=== PATIENT | male | born 1995 | race American Indian/Alaskan Native ===

== ENCOUNTER 2021-07-05 19:26 | Emergency (ER) | payer MEDICAID, OTHER, SELFPAY ==
[2021-07-05] VITALS (8 sets, daily range): BP systolic 122–142; BP diastolic 57–63; PULSE 105–130; RESP 17–27; TEMP 36.6; O2SAT 98–99; BMI 48.7
--- NOTE | 2021-07-05 19:46 | ED_ITS ---
HPI - Back Pain/Injury General Chief Complaint: Back Pain/Injury Stated Complaint: Backpain Time Seen by Provider: 07/05/21 19:38 Source: patient and EMS History of Present Illness HPI Narrative: The patient presents with left flank pain starting about 1 week ago. He is morbidly obese. He can recall no injury. He has no dietary intolerance. He does nausea, vomiting or diarrhea. BMs are normal. He has no left mid back pain. Pain does not radiate to his scrotum. He denies dysuria or hematuria. He has had prior pain, not a severe or long-lasting. He has no history of the abdomen or pelvis surgeries. He is on no medications. He drinks of alcohol, s mokes tobacco. He does not use tobacco or other drugs. Related Data Allergies Allergy/AdvReac Type Severity Reaction Status Date / Time Sulfa (Sulfonamide Allergy Unknown Verified 07/05/21 19:42 Antibiotics) Review of Systems Constitutional Constitutional: Denies anorexia, Denies body ache(s), Denies chills, Denies fever(s) and Denies headache(s) ENT Ears, Nose, Mouth, and Throat: Denies vertigo, Denies dizziness, Denies headache(s), Denies sinus pain and Denies sore throat Cardiovascular Cardiovascular: Denies chest pain, Reports rapid heart rate and Denies dyspnea Respiratory Respiratory: Denies dyspnea Gastrointestinal Gastrointestinal: Reports as per HPI Genitourinary Genitourinary: Denies dysuria, Denies genital pain and Denies urinary frequency Musculoskeletal Musculoskeletal: Denies arthralgias, Reports back pain and Denies arthralgias Integumentary/Breasts Skin/Breast: Denies lesions and Denies rash Neurologic Neurologic: Denies confusion, Denies vertigo, Denies dizziness and Denies headache(s) Psychiatric Psychiatric: Denies confusion Hematologic/Lymphatic On Anticoagulants: No Patient History Medical History (Updated 07/05/21 @ 22:15 by Wally Parekh MD) No significant past medical history Surgical History (Updated 07/05/21 @ 19:57 by Wally Parekh MD) No significant past surgical history Social History Smoking Status: Never smoker Smoking Status: Never smoker alcohol intake frequency: a few times a month Substance Use Type: marijuana Exam Initial Vital Signs Initial Vital Signs: Vital Signs Temperature 97.9 F 07/05/21 19:28 Pulse Rate 130 H 07/05/21 19:28 Respiratory Rate 24 07/05/21 19:28 Blood Pressure 142/63 H 07/05/21 19:28 Pulse Oximetry 99 07/05/21 19:28 Const General: cooperative, comfortable and No diaphoretic Nutritional Appearance: obese HENCT Head: normal to inspection, normocephalic and atraumatic Face and sinus: normal facial exam and sinuses nontender Mouth: oral mucosae normal Throat: posterior oropharynx normal Eyes General: Yes appearance normal, both eyes and all related structures Neck Neck: normal visual inspection Thyroid: thyroid normal Chest Chest: normal inspection of the chest Resp Effort & Inspection: normal respiratory effort Auscultation: clear to auscultation bilaterally Cardio Rate: regular rate Rhythm: regular rhythm Heart Sounds: S1 normal, S2 normal, no murmurs and no rubs GI Other: Morbidly obese. Tenderness in the left mid abdomen, left upper quadrant, radiating to the left lower quadrant. No right-sided pain. No palpable masses. Normal bowel sounds. Back/Spine/Pelvis Back: No CVA tenderness Skin General: no rashes or lesions noted Neuro General: patient alert, patient awake, patient oriented x3 and no focal motor deficits Extrem General: normal to inspection, no pedal edema and no calf tenderness Psych Mental Status: mental status grossly normal Course Orders Ordered: ED Orders 07/05/21 19:30 Ictotest Urine Stat 07/05/21 19:50 Complete Blood Count AUTO DIFF Stat Comprehensive Metabolic Panel Stat Lipase Stat TSH [Thyroid Stimulating Hormone] Stat 07/05/21 19:53 CT abdomen pelvis w con Stat Sodium Chloride (Normal Saline 0.9%) 1,000 mls @ 250 mls/hr IV CONT MARCIO Last Admin: 07/05/21 20:02 Dose: 250 mls/hr Documented by: MIKE Discontinued Medications Ketorolac Tromethamine (Ketorolac 30 Mg/Ml Vial) 30 mg IV NOW ONE Stop: 07/05/21 19:53 Last Admin: 07/05/21 20:00 Dose: 30 mg Documented by: MIKE Vital Signs Vital signs: Vital Signs - 8 hr 07/05/21 19:28 07/05/21 20:17 07/05/21 20:30 Temperature 97.9 F Pulse Rate 130 H 119 H 112 H Respiratory Rate 24 24 27 H Blood Pressure 142/63 H Pulse Oximetry 99 99 98 07/05/21 20:46 07/05/21 21:00 07/05/21 21:30 Temperature Pulse Rate 115 H 112 H 112 H Respiratory Rate 17 27 H 17 Blood Pressure 126/58 L Pulse Oximetry 99 98 99 07/05/21 21:31 Temperature Pulse Rate 110 H Respiratory Rate 26 H Blood Pressure 123/57 L Pulse Oximetry 98 MDM - Back Pain/Injury Lab Data Result diagrams: 07/05/21 19:50 07/05/21 19:50 Labs: Lab Results 07/05/21 07/05/21 07/05/21 Range/Units 19:30 19:50 19:50 WBC 9.1 (4.5-11.0) X10^3/uL RBC 4.36 L (4.5-5.9) X10^6/uL Hgb 12.8 L (13.5-17.5) g/dL Hct 38.5 L (41-53) % MCV 88.3 (80-100) fL MCH 29.4 (26-34) PG MCHC 33.3 (30-36) % RDW 15.1 H (11.6-14.8) % Plt Count 449 H (150-400) X10^3/uL Neut % (Auto) 84.2 H (50-75) % Lymph % (Auto) 9.5 L (25-40) % [place] % (Auto) 4.3 (3-14) % Eos % (Auto) 1.2 L (2-4) % Baso % (Auto) 0.8 (0-2) % Neut # (Auto) 7600 H (1681-0921) /uL Lymph # (Auto) 900 L (4117-4864) /uL [place] # (Auto) 400 (0-900) /uL Eos # (Auto) 100 (0-450) /uL Baso # (Auto) 100 (0-100) /uL Sodium 142 (137-145) mmol/L Potassium 4.0 (3.4-5.1) mmol/L Chloride 105 (98-107) mmol/L Carbon Dioxide 24 (22-32) mmol/L BUN 13 (9-20) mg/dL Creatinine 1.14 (0.66-1.25) mg/dL Estimated GFR > 60 (>60) mL/min BUN/Creatinine Ratio 11.4 (6-22) Glucose 110 H (70-100) mg/dL Calcium 9.0 (8.4-10.2) mg/dL Total Bilirubin 0.5 (0.2-1.3) mg/dL AST 197 H (17-59) IU/L ALT 102 H (<50) IU/L Alkaline Phosphatase 115 (38-126) U/L Total Protein 8.4 H (6.3-8.2) g/dL Albumin 4.7 (3.5-5.0) g/dL Globulin 3.7 (1.7-4.1) g/dL Albumin/Globulin Ratio 1.3 (1.0-2.8) Lipase 61 (23-300) U/L TSH (0.47-4.68) uIU/mL Ur Bilirubin Confirm Negative (Negative) 07/05/21 Range/Units 19:50 WBC (4.5-11.0) X10^3/uL RBC (4.5-5.9) X10^6/uL Hgb (13.5-17.5) g/dL Hct (41-53) % MCV (80-100) fL MCH (26-34) PG MCHC (30-36) % RDW (11.6-14.8) % Plt Count (150-400) X10^3/uL Neut % (Auto) (50-75) % Lymph % (Auto) (25-40) % [place] % (Auto) (3-14) % Eos % (Auto) (2-4) % Baso % (Auto) (0-2) % Neut # (Auto) (3002-7546) /uL Lymph # (Auto) (3268-4293) /uL [place] # (Auto) (0-900) /uL Eos # (Auto) (0-450) /uL Baso # (Auto) (0-100) /uL Sodium (137-145) mmol/L Potassium (3.4-5.1) mmol/L Chloride (98-107) mmol/L Carbon Dioxide (22-32) mmol/L BUN (9-20) mg/dL Creatinine (0.66-1.25) mg/dL Estimated GFR (>60) mL/min BUN/Creatinine Ratio (6-22) Glucose (70-100) mg/dL Calcium (8.4-10.2) mg/dL Total Bilirubin (0.2-1.3) mg/dL AST (17-59) IU/L ALT (<50) IU/L Alkaline Phosphatase (38-126) U/L Total Protein (6.3-8.2) g/dL Albumin (3.5-5.0) g/dL Globulin (1.7-4.1) g/dL Albumin/Globulin Ratio (1.0-2.8) Lipase (23-300) U/L TSH 2.01 (0.47-4.68) uIU/mL Ur Bilirubin Confirm (Negative) Urine Dip Bedside Urine Glucose Negative Bedside Urine Bilirubin + 1 Bedside Urine Ketone - Negative Urine Specific [place] 1.030 Bedside Urine Occult Blood - Negative Bedside Urine pH 5.5 Bedside Urine Protein + 30 Bedside Urine Urobilinogen - Negative Bedside Urine Nitrite - Negative Bedside Urine Leukocytes - Negative Esterase Imaging Data CT scan - abdomen/pelvis: Radiologist's Impression: 1. No acute intra-abdominal abnormality.? Specifically, no evidence of diverticulitis or appendicitis. ? 2. Hepatic steatosis. [facility] Narrative Medical decision making narrative: His tachycardia sent out with rest. Labs show no suggestive infection. Renal function is normal. He has hepatic steatosis. His pain is the left side. He did get relief with Toradol. At/pelvis CT shows no acute findings. Exam then was suggest a muscle strain. He is discharged home with tomorrow off. He is advised use Advil for pain. He should follow-up with a local physician if not improved within 2 weeks. Discharge Plan Departure Patient Disposition: Home Clinical Impression: Abdominal wall strain Instructions: DI for Muscle Strain Activity Restrictions/Additional Instructions: Advil 3 tablets every 6 hours as needed for pain. Rest at home for the next day. Walk and stretch as tolerated. Recheck with your doctor in 7-10 days if not improved. Return here as necessary. Stand Alone Forms: Work Release Note
--- NOTE | 2021-07-05 19:53 | DI.CT.S_ITS ---
PROCEDURE: CT ABDOMEN PELVIS W CON INDICATIONS: Left abd pain TECHNIQUE: After the administration of oral and IV contrast, axial sections were acquired from the lung bases to the pubic symphysis. Coronal and sagittal reformats were performed. For radiation dose reduction, the following was used: automated exposure control, adjustment of mA and/or kV according to patient size. COMPARISON: None. FINDINGS: Image quality: Excellent. Lung bases: Unremarkable. Heart: Heart is normal in size. ABDOMEN: Liver: There is diffuse hypoattenuation of the liver consistent with fatty infiltration with relative sparing along the gallbladder fossa. Gallbladder: Within normal limits without calcified gallstones. Biliary ducts: No biliary ductal dilatation. Pancreas: Unremarkable. Spleen: Normal in size. Adrenal Glands: No adrenal nodules. Kidneys and Ureters: No hydronephrosis. Stomach and Bowel: Stomach, small bowel loops, and colon are normal in caliber and wall thickness. The appendix is normal in appearance. There are a few colonic diverticula without acute diverticulitis. Peritoneum: No abnormal intraperitoneal fluid. No free air. Ventral Wall: No hernia. Abdominal Nodes: No retroperitoneal or mesenteric adenopathy by size criteria. Vessels: Aorta and inferior vena cava are normal in size. PELVIS: Pelvic Organs: Unremarkable. Bladder: Unremarkable. Pelvic Nodes: No enlarged lymph nodes. Miscellaneous: No inguinal hernias are seen. Bones: Visualized osseous structures demonstrate no suspicious focal lesions. IMPRESSION: 1. No acute intra-abdominal abnormality. Specifically, no evidence of diverticulitis or appendicitis. 2. Hepatic steatosis. Dictated by: Edward Bearden M.D. on 07/05/2021 at 20:42 Approved by: Edward Bearden M.D. on 07/05/2021 at 20:45
[2021-07-05] MEDS: KETOROLAC 30 MG/ML VIAL IV (20:00)
[2021-07-05] MEDS: SODIUM CHLORIDE 0.9% 1,000 ML 250 ML IV (20:02)
[2021-07-05 20:07] LABS: Ictotest Urine Negative (Negative)
[2021-07-05 20:15] LABS: Add Manual Diff / Slide Review NO; Basophils Absolute Auto 100 /uL (0-100); Basophils Percent Auto 0.8 % (0-2); Eosinophils Absolute Auto 100 /uL (0-450); Eosinophils Percent Auto 1.2 % (2-4); Hematocrit 38.5 % (41-53); Hemoglobin 12.8 g/dL (13.5-17.5); Lymphocytes Absolute Auto 900 /uL (1100-4500); Lymphocytes Percent Auto 9.5 % (25-40); Mean Corpuscular HGB Conc 33.3 % (30-36); Mean Corpuscular Hemoglobin 29.4 PG (26-34); Mean Corpuscular Volume 88.3 fL (80-100); Monocytes Absolute Auto 400 /uL (0-900); Monocytes Percent Auto 4.3 % (3-14); Neutrophils Absolute Auto 7600 /uL (1500-7000); Neutrophils Percent Auto 84.2 % (50-75); Platelet Count 449 X10^3/uL (150-400); Red Blood Cell Count 4.36 X10^6/uL (4.5-5.9); Red Cell Distribution Width 15.1 % (11.6-14.8); White Blood Cell Count 9.1 X10^3/uL (4.5-11.0)
[2021-07-05 20:21] LABS: Alanine Aminotransferase 102 IU/L (<50); Albumin 4.7 g/dL (3.5-5.0); Albumin Globulin Ratio 1.3 (1.0-2.8); Alkaline Phosphatase 115 U/L (38-126); Aspartate Aminotransferase 197 IU/L (17-59); BUN Creatinine Ratio 11.4 (6-22); Bilirubin Total 0.5 mg/dL (0.2-1.3); Blood Urea Nitrogen 13 mg/dL (9-20); Carbon Dioxide 24 mmol/L (22-32); Chloride 105 mmol/L (98-107); Estimated Glomerular Filt Rate > 60 mL/min (>60); Globulin 3.7 g/dL (1.7-4.1); Glucose 110 mg/dL (70-100); HEMOLYSIS 17 (0-50); Lipase 61 U/L (23-300); Sodium 142 mmol/L (137-145); Total Protein 8.4 g/dL (6.3-8.2)
[2021-07-05 21:27] LABS: Thyroid Stimulating Hormone 2.01 uIU/mL (0.47-4.68)
== END 2021-07-05 22:42 | disposition home or self-care (01) ==
PROVIDERS: Nurse Practitioner Critical Care Medicine; Emergency Provider Emergency Medicine
DX: S39.011A Strain of muscle, fascia and tendon of abdomen, initial encounter (principal); E66.01 Morbid (severe) obesity due to excess calories; Z68.42 Body mass index [BMI] 45.0-49.9, adult
CPT/HCPCS: 36415; 74177; 80053; 81003; 83690; 84443; 85025; 96374; 99284; J1885; Q9967

== ENCOUNTER 2023-03-26 00:45 | Emergency (ER) | payer MEDICAID, OTHER, SELFPAY ==
[2023-03-26 00:51] VITALS: BP 165/97; PULSE 109; RESP 22; TEMP 36; O2SAT 98; BMI 58.3
--- NOTE | 2023-03-26 02:13 | ED_ITS ---
HPI - Dental/Oral General Chief complaint: Dental/Oral Stated complaint: dental rt side pain Time Seen by Provider: 03/26/23 02:13 Source: patient Mode of arrival: Ambulatory History of Present Illness HPI Narrative: Patient 27-year-old male history morbid obesity hypertension hyperlipidemia presents today with ongoing dental pain. He reports that his right upper tooth 1. Has been in pain for the past couple of days. He actually has an appointment with a dentist this morning so in a few hours. However at home it was throbbing and not relieved with ibuprofen. No fever or swelling. Related Data Previous Rx's Medication Instructions Recorded amoxicillin 500 mg capsule 500 mg PO BID #14 caps 03/26/23 Allergies Allergy/AdvReac Type Severity Reaction Status Date / Time Sulfa (Sulfonamide Allergy Unknown Verified 07/05/21 19:42 Antibiotics) Patient History Medical History (Updated 03/26/23 @ 02:31 by Chelsi Antonio DO) No significant past medical history Surgical History (Updated 07/05/21 @ 19:57 by Wally Parekh MD) No significant past surgical history Social History Smoking Status: Never smoker Smoking Status: Never smoker alcohol intake frequency: a few times a month Substance Use Type: marijuana Exam Initial Vital Signs Initial Vital Signs: Vital Signs Temperature 96.8 F L 03/26/23 00:51 Pulse Rate 109 H 03/26/23 00:51 Respiratory Rate 22 03/26/23 00:51 Blood Pressure 165/97 H 03/26/23 00:51 Pulse Oximetry 98 03/26/23 00:51 Oxygen Delivery Method Room Air 03/26/23 00:51 GENERAL: Well-appearing, well-nourished and in no acute distress. CARDIOVASCULAR: peripheral pulses in tact, cap refill <2 sec RESPIRATORY: No respiratory distress, speaks in full sentences without difficulty EXTREMITIES: Normal range of motion, no clubbing or edema. Neurovascularly intact NEUROLOGICAL: Cranial nerves II through XII grossly intact. Normal gait and speech. SKIN: Warm, dry, no petechiae, no rashes or lesions. HENMT Adult Head Mouth w/[place] Teeth: 2 1. Site of pain without dental abscess obvious fracture or dental carry Procedures Nerve Block Nerve Block 1: Local Anesthetic: lidocaine 1% Amount of anesthesia used (mL): 1 Side: right Intraoral Nerve Block: supraperiosteal Procedure Successful: Yes Patient Tolerated Procedure: Well and No complications Course Orders Ordered: Discontinued Medications Amoxicillin (Amoxicillin 250 Mg Prepack) 1 bottle MISC DIRECTED ONE Stop: 03/26/23 02:29 Last Admin: 03/26/23 02:31 Dose: 1 bottle Documented By: MAKENZIE Lidocaine HCl (Lidocaine 1% (Pf) 5 Ml) 5 ml INJ NOW ONE Stop: 03/26/23 02:19 Last Admin: 03/26/23 02:20 Dose: 5 ml Documented By: MAKENZIE Vital Signs Vital signs: Vital Signs - 8 hr 03/26/23 00:51 03/26/23 02:36 Temperature 96.8 F L Pulse Rate 109 H 92 H Respiratory Rate 22 24 Blood Pressure 165/97 H Pulse Oximetry 98 97 Oxygen Delivery Method Room Air Room Air MDM - Dental/Oral MDM Narrative Medical decision making narrative: Patient 27-year-old male history of morbid obesity hypertension presenting today with ongoing dental pain. He has an appointment with a dentist in a couple of hours. He has no obvious dental abscess. He did receive a dental block which helped with pain. He is given amoxicillin. At this time recommend follow-up at the dentist. Discharge Plan Departure Patient Disposition: Home Clinical Impression: Toothache Instructions: DI for Dental Pain Activity Restrictions/Additional Instructions: *You have been diagnosed with dental pain *What to do: At this time please follow-up with your dentist in regards to your dental pain. *Continue to take medications as directed Amoxicillin 500 mg twice a day for 7 days--> [facility] Motrin 600 mg every 6 hours if needed for pain Tylenol 1000 mg every 6 hours if needed for [id number] *Follow up with your primary care provider in 2-3 days or call [phone] *Return to ER if you should have increasing pain swelling fever or any new, worsening or concerning symptoms Prescriptions: New amoxicillin 500 mg capsule 500 mg PO BID Qty: 14 0RF Stand Alone Forms: Patient Portal/API
[2023-03-26] MEDS: LIDOCAINE 1% (PF) 5 ML INJ (02:20)
[2023-03-26] MEDS: AMOXICILLIN 250 MG PREPACK 1 BOTTLE MISC (02:31)
[2023-03-26 02:36] VITALS: PULSE 92; RESP 24; O2SAT 97
== END 2023-03-26 02:38 | disposition home or self-care (01) ==
PROVIDERS: Emergency Provider Emergency Medicine
DX: K08.89 Other specified disorders of teeth and supporting structures (principal)
CPT/HCPCS: 64450; 99282; 99283

== ENCOUNTER 2023-06-15 19:09 | Emergency (ER) | payer MEDICAID, OTHER, SELFPAY ==
[2023-06-15 19:19] VITALS: BP 141/89; PULSE 138; RESP 17; TEMP 36.6; O2SAT 96; BMI 58.3
--- NOTE | 2023-06-15 19:24 | DI.RAD.S_ITS ---
PROCEDURE: XR KNEE RT 3V INDICATIONS: fall TECHNIQUE: 3 views of the knee were acquired. COMPARISON: [facility], , KNEE 3V RIGHT, 02/26/2011, 17:52. FINDINGS: Bones: No fractures or dislocations. No suspicious bony lesions. Soft tissues: No joint effusion. No suspicious soft tissue calcifications. IMPRESSION: No acute bony abnormality or significant effusion. Dictated by: Sekou Santana M.D. on 06/15/2023 at 20:04 Approved by: Sekou Santana M.D. on 06/15/2023 at 20:05
--- NOTE | 2023-06-15 20:39 | ED.LOWEXIN ---
HPI - Extremity Injury (Lower) General Chief Complaint: Extremity Injury, Lower Stated Complaint: knee problems, hard time walking Time Seen by Provider: 06/15/23 20:38 Source: patient Mode of arrival: Ambulatory History of Present Illness HPI Narrative: Patient is a 27-year-old male with morbid obesity presenting today with right knee pain. He reports that he has had some pain for last couple of days he stepped on a step today and felt like his knee gave out on him. He did not really fall. But it hurts to bear weight. He has been taking Tylenol ibuprofen without significant improvement Related Data Previous Rx's Medication Instructions Recorded amoxicillin 500 mg capsule 500 mg PO BID #14 caps 03/26/23 hydrocodone 5 mg-acetaminophen 325 1 tab PO Q6H PRN pain #10 tabs 06/15/23 mg tablet Allergies Allergy/AdvReac Type Severity Reaction Status Date / Time Sulfa (Sulfonamide Allergy Unknown Verified 07/05/21 19:42 Antibiotics) Patient History Medical History No significant past medical history Surgical History No significant past surgical history Social History Smoking Status: Never smoker Smoking Status: Never smoker alcohol intake frequency: a few times a month Substance Use Type: marijuana Exam Initial Vital Signs Initial Vital Signs: Vital Signs Temperature 98 F 06/15/23 19:19 Pulse Rate 138 H 06/15/23 19:19 Respiratory Rate 17 06/15/23 19:19 Blood Pressure 141/89 H 06/15/23 19:19 Pulse Oximetry 96 06/15/23 19:19 Oxygen Delivery Method Room Air 06/15/23 19:19 GENERAL: Alert morbidly obese 27-year-old male CARDIOVASCULAR: Tachycardic regular no cyanosis RESPIRATORY: Clear bilaterally no respiratory distress speaks in full sentences EXTREMITIES: Normal range of motion, no clubbing or edema. Neurovascularly intact Right knee able flex and extend knee feels stable minimal effusion no erythema distal pedal pulse intact NEUROLOGICAL: Cranial nerves II through XII grossly intact. Normal gait and speech. SKIN: Warm, dry, no petechiae, no rashes or lesions. Course Orders Ordered: ED Orders 06/15/23 19:24 XR knee RT 3V Stat Discontinued Medications Hydrocodone Bitart/Acetaminophen (Hydrocodone/Acet 5/325 Prepack) 1 bottle MISC DIRECTED ONE Stop: 06/15/23 20:40 Last Admin: 06/15/23 20:46 Dose: 1 bottle Documented By: SEAN Ketorolac Tromethamine (Ketorolac 30 Mg/Ml Vial) 30 mg IM NOW ONE Stop: 06/15/23 20:44 Last Admin: 06/15/23 20:46 Dose: 30 mg Documented By: SEAN Vital Signs Vital signs: Vital Signs - 8 hr 06/15/23 19:19 06/15/23 20:50 06/15/23 21:02 Temperature 98 F Pulse Rate 138 H 118 H Respiratory Rate 17 16 22 Blood Pressure 141/89 H 125/82 Pulse Oximetry 96 99 98 Oxygen Delivery Method Room Air Room Air Room Air MDM - Extremity Injury (Lower) Imaging Data Extremity x-ray #1: Radiologist's Impression: PROCEDURE: XR KNEE RT 3V INDICATIONS: fall TECHNIQUE: 3 views of the knee were acquired. COMPARISON: [facility], , KNEE 3V RIGHT, 02/26/2011, 17:52. FINDINGS: Bones: No fractures or dislocations. No suspicious bony lesions. Soft tissues: No joint effusion. No suspicious soft tissue calcifications. IMPRESSION: No acute bony abnormality or significant effusion. Dictated by: Sekou Santana M.D. on 06/15/2023 at 20:04 Approved by: Sekou Santana M.D. on 06/15/2023 at 20:05 [facility] Narrative Medical decision making narrative: Patient 27-year-old male presents today with right knee pain is last 2 days. X-ray today has been reviewed and negative for fracture. He is noted to be tachycardic heart rate at 138 after review of chart he is always tachycardic. Reports that he feels anxious. He denies any sort palpitations shortness of breath. Heart rate did improve from 138 to120 but then with any sort of movement it increases. He has given a shot of Toradol and [place] here in the ED along with crutches. Discharge Plan Departure Patient Disposition: Home Clinical Impression: Right knee sprain Instructions: DI for Knee Sprain Activity Restrictions/Additional Instructions: *You have been diagnosed with right knee sprain *What to do: At this time use crutches as needed do recommend trying to find a knee brace. If knee is still giving him problems you may require an MRI *Continue to take medications as directed Motrin 600 mg every 6 hours if needed for [id number] pain [place] 1 tablet every 6 hours if needed for severe pain or at night to help sleep *Follow up with your primary care provider in 2-3 days or call [phone] *Return to ER if you should have increasing pain numbness tingling weakness or any new, worsening or concerning symptoms CONTROLLED SUBSTANCE DISCHARGE (Narcotoic/benzodiazepine/Flexeril/Phenergan) 1. You have been prescribed narcotic medications, it does have acetaminophen/Tylenol/paracetamol in it, DO NOT TAKE MORE THAN 4,00mg in 24 hours of Tylenol. TRAMADOL DOES NOT CONTAIN TYLENOL 2. Please understand that we cannot provide further refills of narcotics, benzodiazepines or controlled substances through the ED and her pain management will need to be through your provider. 3. While on these medications you cannot drive or operate heavy machinery. 4. You cannot sign legal documents or perform any duties such as this. 5. As long as you're taking opiate pain medications he should also be taking a stool softener such as Colace, Dulcolax, MiraLAX or prune juice, to help avoid constipation. Prescriptions: New hydrocodone-acetaminophen 5-325 mg tablet 1 tab PO Q6H PRN (Reason: pain) Qty: 10 0RF No Action amoxicillin 500 mg capsule 500 mg PO BID Qty: 14 0RF Stand Alone Forms: Patient Portal/API
[2023-06-15] MEDS: KETOROLAC 30 MG/ML VIAL IM (20:46)
[2023-06-15] MEDS: HYDROCODONE/ACET 5/325 PREPACK 1 BOTTLE MISC (20:46)
[2023-06-15 20:50] VITALS: PULSE 118; RESP 16; O2SAT 99
--- NOTE | 2023-06-15 20:59 | PC.NURSE ---
Applied 6 inch and 4 inch sheri wrap to right knee, CMS intact, pt trained on care and use. Crutches set at 5' 10, handle bar set on top. Verbal and return demonstration done.
[2023-06-15 21:02] VITALS: BP 125/82; RESP 22; O2SAT 98
== END 2023-06-15 21:04 | disposition home or self-care (01) ==
PROVIDERS: Emergency Provider Emergency Medicine
DX: S83.91XA Sprain of unspecified site of right knee, initial encounter (principal); X58.XXXA Exposure to other specified factors, initial encounter
CPT/HCPCS: 73562; 96372; 99283; J1885